=== PATIENT | female | born 1935 | race Caucasian/White ===

== ENCOUNTER 2017-04-23 14:56 | Inpatient (IN) | payer OTHER ==
[~2017-04-23] VITALS: Ht 154.9 cm; Wt 84.4 kg
--- NOTE | ~2017-04-23 | D ---
[facility] [place] [address] DISCHARGE SUMMARY Name: MATIAS TAVERASVINCENT Clayton Room #: 457-P [facility] IN M.R.#: [id number] Admission: 04/23/17 Attend Phys: Ben Hemphill MD Discharge: 04/29/17 Date of : 37 Report #: [id number] THIS REPORT FOR: //name// CC: Ben Hemphill FINAL DIAGNOSES: 1. Acute Clostridium difficile colitis. 2. Bilateral pleural effusions. 3. Acute hypoxic respiratory failure. 4. Atrial fibrillation. 5. Chronic anticoagulation. 6. 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 8. Electrolyte imbalance. HOSPITAL COURSE: The patient was admitted from an LTAC for evaluation of her lower extremity weakness. MRI of the spine was unremarkable other than some degenerative changes. There seemed to be no cord impingement syndrome. Neurology saw her and did not feel there was an acute surgical cause and felt this was just related to her weakness, was related to deconditioning and weakness from her acute critical illness. Medically, she had some issues, namely being hypoxia. Studies revealed large bilateral pleural effusions and she had 300 to 700 mL tapped and removed from each lung on separate days. This improved her symptoms significantly and she was weaned off oxygen. AFib was stable with Xarelto use and rate control. She had diarrhea with high white count and C. diff was diagnosed. She was treated with oral vancomycin. PHYSICAL EXAMINATION: GENERAL: On the day of discharge, she was awake and alert, off oxygen, satting in the mid 90s on room air. VITAL SIGNS: Stable. LUNGS: Clear. HEART: Irregular. ABDOMEN: Soft, normoactive bowel sounds. EXTREMITIES: 1+ edema. She was on electrolyte replacement as well. DISPOSITION: To be discharged to a nursing home facility. I signed off on her transfer medications, diet, activity as tolerated, C. diff precautions, physical and occupational therapy. I will follow her stay there. <ELECTRONICALLY SIGNED> By: Ben Hemphill MD 04/30/17 0907 [id number] Ben Hemphill MD /nt
--- NOTE | ~2017-04-23 | HC ---
[facility] [address] CONSULTATION Name: TAVERASEBER R Room #: 457-P [facility] IN M.R.#: [id number] Admission: 04/23/17 Attend Phys: Ben Hemphill MD Discharge: Date of : 36 Report #: [id number] THIS REPORT FOR: //name// CC: Ben Hemphill DATE OF SERVICE: 04/25/2017 HISTORY OF PRESENT ILLNESS: The patient is an 81-year-old white female who has a complex history of initially undergoing a right total knee arthroplasty approximately 2 months ago in early February. She initially did well, was able to be discharged to home. She then had the complication of a pneumonia with acute respiratory failure, ended up needing mechanical ventilation, was transferred to [facility], had tracheostomy, PEG tube placement. She had a prolonged hospitalization and was then transferred to [facility]. She was able to be weaned off the ventilator and decannulated. She was noted to have extreme lower extremity weakness with no ability to ambulate since early February. She was transferred over to [facility] and underwent neurology evaluation. MRI of the lumbosacral spine was essentially negative. She appears to have a critical illness myopathy, although she has proximal muscle weakness which is significant as well. She has had issues with atrial fibrillation and she is in isolation for C. diff. She has bilateral large pleural effusions and is followed by pulmonary medicine. We are seeing her in rehabilitation medicine consultation. PAST MEDICAL HISTORY: Includes atrial fibrillation. She has the above significant prior history. PAST SURGICAL HISTORY: Includes a prior left total knee replacement with good recovery and then the recent right total knee replacement in early February. FAMILY HISTORY: Noncontributory. SOCIAL HISTORY: She lives in [place], [place] with her . There is a house with 5 steps in. There is apparently a hide-a-bed on the ground floor and she could stay on that ground floor if necessary. A ramp would needed to be built however. The patient and her do have family here in the [place] area. ALLERGIES: PENICILLIN and SULFA. HABITS: No history of chronic alcohol or tobacco use. MEDICATIONS: Please see the full medication listing. REVIEW OF SYSTEMS: Complains of overall generalized weakness and debilitation. [facility] [address] [place] [address] CONSULTATION Name: EBER TAVERAS Room #: 457-P [facility] IN M.R.#: [id number] Admission: 04/23/17 Attend Phys: Ben Hemphill MD Discharge: Date of : 36 Report #: [id number] No focal pain complaints. She notes she fatigues fairly quickly. PHYSICAL EXAMINATION: GENERAL: An 81-year-old overweight white female in no obvious distress. VITAL SIGNS: Last recorded temperature is 97.8, pulse 74, respirations 22, blood pressure 123/83. NEUROLOGIC: The patient is alert. She is pleasant. She has nasal prong O2. She is currently on 2 liters. Facies are symmetric. She has functional range of motion of both upper extremities. Strength is grade 4-/5 to 3+/5. DTRs are trace. As far as her lower extremities, she was unable to lift both of her legs and to try to place her knee in her chest. Proximal lower extremity strength was less than antigravity to grade 3. Knee extension, knee flexion, ankle dorsiflexion, plantar flexion are all grade 3. DTRs are trace to 1. Functionally, she is sit to stand edge of bed, max assist. She is mod to max for static standing. EXTREMITIES: Bilateral knee incisions are noted with the left well healed and the right more recent knee incision healing in nicely. ASSESSMENT: An 81-year-old white female with the following problem list: 1. Critical illness myopathy. 2. Acute respiratory failure with hypoxia, prior tracheostomy with decannulation. Prolonged hospitalizations. 3. Atrial fibrillation. 4. Pleural effusion. Pulmonary medicine is closely following. 5. Clostridium difficile colitis, in isolation. PLAN: We are assessing her for a potential acute [address] [place] [address] inpatient rehabilitation stay. We will be glad to follow along with you. <ELECTRONICALLY SIGNED> By: Ben Baron MD 04/25/17 1350 1140 1221 Ben Baron MD /nt
--- NOTE | ~2017-04-23 | CNG ---
[facility] [place] [address] CYTO-NONGYN REPORT PROCEDURE Name: RADHA TAVERAS Room #: 457-P ADM IN M.R.#: [id number] Admission: 04/23/17 Date of : 37 Discharge: Report #: [id number] Path Case #: [id number] CYTOPATHOLOGY REPORT COLLECTION DATE: 04/24/2017 RECEIVED DATE: 04/24/2017 SUBMITTING PHYS: Dr. Giselle Kay OTHER PHYS: Dr. Ben Hemphill CLINICAL HISTORY: Lower extremity weakness. SPECIMEN(S) RECEIVED: A.Pleural fluid * * * * * * * * * * * * FINAL DIAGNOSIS: A. Pleural fluid: No malignant epithelial cells identified. - Highly reactive mesothelial cells and predominantly chronic inflammatory cells present. COMMENT: Properly-controlled immunohistochemical stains are performed on the cell block. Block A1 Calretinin Highlights scattered mesothelial cells. CD68 Stains numerous histiocytes. Matthew-EP4 Nonreactive. (CLW:mmrohan; 04/26/2017) PATHOLOGIST: Selene Lee M.D. REPORT ELECTRONICALLY SIGNED BY: Selene Lee M.D. DATE/TIME: 04/26/2017 15:49 * * * * * * * * * * * * GROSS PATHOLOGY: A. Pleural fluid: The specimen is submitted unfixed, labeled "Radha Taveras". Received by the Cytology Department is 10 mL of red fluid. One ThinPrep slide and a cell block were prepared. (clt 04.24.2017) FLASHER ADJUSTER(S): CHRIS [place] INITIAL CPT CODE(S): A; 34287, 65903, 67214, 47239, 59763 Professional services performed by [facility] at [facility] [address] [place] [address] [facility] [address] [place] [address] CYTO-NONGYN REPORT PROCEDURE Name: RADHA TAVERAS Room #: 457-P ADM IN .R.#: [id number] Admission: 04/23/17 Date of : 36 Discharge: Report #: [id number] Path Case #: [id number] Technical services performed by [facility] at [address] [place] [address], [address], [place] [address]. [address] [place] [address] PHONE: [phone] DIRECTOR: Coleman Duncan M.D. * * * END OF REPORT * * *
--- NOTE | ~2017-04-23 | CNG ---
[facility] [place] [address] CYTO-NONGYN REPORT PROCEDURE Name: RADHA TAVERAS Room #: 457-P DIS IN M.R.#: [id number] Admission: 04/23/17 Date of : 37 Discharge: 04/29/17 Report #: [id number] Path Case #: [id number] CYTOPATHOLOGY REPORT COLLECTION DATE: 04/26/2017 RECEIVED DATE: 04/26/2017 SUBMITTING PHYS: Dr. Ben Hemphill OTHER PHYS: CLINICAL HISTORY: LE weakness. SPECIMEN(S) RECEIVED: A.Pleural fluid * * * * * * * * * * * * FINAL DIAGNOSIS: A. Pleural fluid: - No malignant cells identified. Reactive mesothelial cells and inflammation identified. PATHOLOGIST: Gwendolyn Amanda M.D. REPORT ELECTRONICALLY SIGNED BY: Gwendolyn Amanda M.D. DATE/TIME: 04/29/2017 16:18 * * * * * * * * * * * * GROSS PATHOLOGY: A. Pleural fluid: The specimen is submitted unfixed, labeled "Radha Taveras". Received by the Cytology Department is 10 mL of orange red fluid. One ThinPrep slide and a cell block were prepared. (clt 04.26.2017) TIME SIGNAL WIRER(S): CHRIS Luque(AS[facility]) INITIAL CPT CODE(S): A; 54593, 72083 Professional services performed by [facility] at [facility] [address], [place] [address] Technical services performed by [facility] at [address] [place] [address]., [address], [place] [address]. [facility] [address] [place] [address], [address] [place] [address] [address]: [phone] [facility] [place] [address] CYTO-NONGYN REPORT PROCEDURE Name: RADHA TAVERAS Room #: 457-P [facility] IN M.R.#: [id number] Admission: 04/23/17 Date of : 36 Discharge: 04/29/17 Report #: [id number] Path Case #: [id number] DIRECTOR: Coleman Duncan M.D. * * * END OF REPORT * * *
--- NOTE | ~2017-04-23 | 2DMMODE ---
[address] [place] [address] 2 D/M-MODE ECHOCARDIOGRAM Name: EBER TAVERAS Room #: 457-P ADM IN .R.#: [id number] Admission: 04/23/17 Attend Phys: Naun Frey Discharge: Date of : 37 Date of Service: 04/24/17 1135 Report #: [id number] THIS REPORT FOR: //name// APPROVED REPORT Study performed: 04/24/2017 09:52:42 EXAM: Comprehensive 2D, Doppler, and color-flow Echocardiogram Patient Location: Bedside Room #: 434 Status: routine BSA: 1.83 HR: 111 bpm BP: 186/123 mmHg Rhythm: Atrial Fibrillation Other Information Study Quality: Adequate Indications Dyspnea Hx: Chronic Afib 2D Dimensions RVDd: 41.90 mm LVEF(%): 49.62 (>50%) IVSd: 9.64 (7-11mm) LVOT Diam: 19.52 (18-24mm) LVDd: 47.16 mm PWd: 10.59 (7-11mm) LVDs: 35.32 (25-40mm) Aortic Root: 31.77 mm Nicholas's LVEF: 49.62 % Volumes Left Atrial Volume (Systole) Single Plane 4CH: 66.39 mL Single Plane 2CH: 82.71 mL LA ESV Index: 44.00 mL/m2 Aortic Valve AoV Peak Aniceto.: 1.65 m/s AO Peak Gr.: 10.88 mmHg LVOT Max P.38 mmHg LVOT Max V: 1.16 m/s AR Vmax: 2.10 cm2 Mitral Valve MVA Planimetry: 2187.19 mm2 MV Decel. Time: 206.[address] [employer] [place] [address] 2 D/M-MODE ECHOCARDIOGRAM Name: EBER TAVERAS Room #: 457-P [facility] IN [facility].#: [id number] Admission: 04/23/17 Attend Phys: Naun Frey Discharge: Date of : 37 Date of Service: 04/24/17 1135 Report #: [id number] MV E Max Aniceto.: 0.99 m/s Pulmonary Valve PV Peak Aniceto.: 1.21 m/s PV Peak Gr.: 5.88 mmHg Tricuspid Valve TR Peak Aniceto.: 3.09 m/s RAP Estimate: 5.00 mmHg TR Peak Gr.: 38.35 mmHg PA Pressure: 43.00 mmHg Left Ventricle The left ventricle is normal size. There is normal LV segmental wall motion. There is normal left ventricular wall thickness. Left ventricular systolic function is normal. LVEF is 55-60%. This study is not technically sufficient to allow evaluation of the LV diastolic function due to atrial fibrillation. Right Ventricle Right ventricle is mildly dilated. The right ventricular systolic function is normal. Atria Left atrium is severely dilated. Right atrium is moderately dilated. Aortic Valve Aortic valve is mildly calcified. No aortic regurgitation is present. Mitral Valve Mitral valve leaflets are mildly thickened. Mild mitral annular calcification. Moderate mitral regurgitation. Tricuspid Valve The tricuspid valve is normal in structure. There is moderate tricuspid regurgitation. The right atrial pressure is estimated at 5 mmHg. There is moderate pulmonary hypertension with an estimated PAP of 43mmHg. Pulmonic Valve Pulmonic valve is not well visualized. Trace pulmonic regurgitation. Great Vessels The aortic root is normal in size. Ascending aorta is not well visualized. IVC is normal in size and collapses >50% with [address] [place] [address] 2 D/M-MODE ECHOCARDIOGRAM Name: EBER TAVERAS Forrest Room #: 457-P [facility] IN .R.#: [id number] Admission: 04/23/17 Attend Phys: Naun Frey Discharge: Date of : 37 Date of Service: 04/24/17 1135 Report #: [id number] inspiration. Pericardium There is no pericardial effusion. Left and right pleural effusions noted. <Conclusion> The left ventricle is normal size. Left ventricular systolic function is normal. LVEF is 55-60%. Right ventricle is mildly dilated. Left atrium is severely dilated. Right atrium is moderately dilated. Aortic valve is mildly calcified. No aortic regurgitation is present. Mitral valve leaflets are mildly thickened. Mild mitral annular calcification. Moderate mitral regurgitation. The tricuspid valve is normal in structure. There is moderate tricuspid regurgitation. The right atrial pressure is estimated at 5 mmHg. There is moderate pulmonary hypertension with an estimated PAP of 43mmHg. Pulmonic valve is not well visualized. Trace pulmonic regurgitation. Ascending aorta is not well visualized. Left and right pleural effusions noted. <ELECTRONICALLY SIGNED> By: Gianfranco Palencia MD 04/24/17 1135 1135 1135 Gianfranco Palencia MD /INF
--- NOTE | ~2017-04-23 | H ---
[facility] [place] [address] HISTORY AND PHYSICAL Name: TAVERASEBER R Room #: 457-P ADM IN M.R.#: [id number] Admission: 04/23/17 Attend Phys: Ben Hemphill MD Discharge: Date of : 36 Report #: [id number] THIS REPORT FOR: //name// CC: Ben Hemphill DATE OF SERVICE: 04/23/2017 CHIEF COMPLAINT: Leg weakness. HISTORY OF PRESENT ILLNESS: The patient is an 81-year-old female admitted from [facility] for evaluation of leg weakness. Her history began approximately 2 months ago when she [facility]. She discharged home only to be readmitted to the hospital a day or 2 later with shortness of breath. Subsequently, she developed acute hypoxic respiratory failure, felt to be related to pneumonia and required intubation and mechanical ventilation. She was unable to wean from the ventilator and subsequently required the placement of a trach and PEG tube. She transferred to [facility] for attempted ventilator weaning; however, she had additional complications with infections and was readmitted to [facility]. When stabilized here, she transferred to [facility]. She has been now weaned from the ventilator and her tracheostomy tube has been decannulated. She has progressed to an oral diet and is ready to proceed with rehabilitation efforts. However, during her stay, she has had extreme leg weakness and she has been unable to stand or walk. She is admitted for evaluation of leg weakness for consideration of a possible lumbar spinal issue. PAST MEDICAL HISTORY: As above, atrial fibrillation. PAST SURGICAL HISTORY: As above. FAMILY HISTORY: Noncontributory. SOCIAL HISTORY: No known chronic alcohol or tobacco use. ALLERGIES: PENICILLIN and SULFA. MEDICATIONS: Please see the transfer list. REVIEW OF SYSTEMS: She was denying headache, chest pain, shortness of breath, abdominal pain, nausea, vomiting, diarrhea, constipation, dysuria, syncope. PHYSICAL EXAMINATION: VITAL SIGNS: Per the nursing note. GENERAL: She is awake and alert, sitting up in bed in no distress. LUNGS: Clear. [address] [address] HISTORY AND PHYSICAL Name: EBER TAVERAS Forrest Room #: 457-P [facility] IN M.R.#: [id number] Admission: 04/23/17 Attend Phys: Ben Hemphill MD Discharge: Date of : 36 Report #: [id number] HEART: Regular. ABDOMEN: Soft. EXTREMITIES: Showed no edema. NEUROLOGIC: She had global weakness in the lower legs. This physical assessment was made at [facility] as I saw her on rounds this morning. ASSESSMENT: 1. Acute lower extremity weakness. 2. Atrial fibrillation. 3. Recent acute hypoxic respiratory failure, recent weaned from ventilator and tracheostomy tube decannulation. 4. Recent right total knee replacement. 5. Critical illness myopathy. PLAN: An MRI of the lumbosacral spine has been ordered. I have asked the Neurology service to see her as well. We will continue her medications and transfer. Anticipate discharge to a rehabilitation center once evaluation completed. <ELECTRONICALLY SIGNED> By: Ben Hemphill MD 04/24/17 1313 1557 1731 Ben Hemphill MD /nt
--- NOTE | ~2017-04-23 | HC ---
[facility] [place] [address] CONSULTATION Name: EBER TAVERAS Forrest Room #: 457-P ADM IN M.R.#: [id number] Admission: 04/23/17 Attend Phys: Ben Hemphill MD Discharge: Date of : 36 Report #: [id number] THIS REPORT FOR: //name// CC: Ben Hemphill DATE OF SERVICE: 04/23/2017 REASON FOR CONSULTATION: Pleural effusions. IMPRESSION: 1. Bilateral pleural effusions. 2. History of acute on chronic respiratory failure with sepsis, pneumonia, gram negative, gram positive organisms. 3. History of right upper lobe density. 4. Chronic atrial fibrillation. 5. Status post right total knee, complicated with sepsis and pneumonia. 6. Hypokalemia. 7. Hyponatremia. 8. Protein calorie malnutrition, albumin of 1.7. 9. Leukocytosis. 10. Anemia, normocytic. 11. Elevated TSH. PLAN: We will move to telemetry bed, ask ID to revisit, may do CT chest. Because of leg weakness, MRI has been ordered and neuro consult has been ordered. HISTORY OF PRESENT ILLNESS: A very pleasant 81-year-old female had a knee replacement done, had sepsis, pneumonia, had trach. She was at [facility], then went to for sepsis, then brought to [facility]. There, she improved and was able to be decannulated, however, continued to have leg weakness. PAST MEDICAL HISTORY: Per chart. PAST SURGICAL HISTORY: Include knee replacement. ALLERGIES: PENICILLIN, SULFONAMIDES. FAMILY HISTORY: Noncontributory. SOCIAL HISTORY: Negative tobacco, negative ETOH. MEDICATIONS: Included amiodarone, atorvastatin, bacitracin, Boost, famotidine, digoxin, ipratropium, rivaroxaban, triamcinolone, glucagon, dextrose, Lasix, loperamide, ipratropium bromide p.r.n., trazodone and tramadol p.r.n. [facility] [address] [place] [address] CONSULTATION Name: EBER TAVERAS Forrest Room #: 457-P [facility] IN [facility]#: [id number] Admission: 04/23/17 Attend Phys: Ben Hemphill MD Discharge: Date of : 36 Report #: [id number] PHYSICAL EXAMINATION: VITAL SIGNS: Pending in the computer. The patient is alert and oriented on nasal cannula. LUNGS: Clear but decreased breath sounds. HEART: Irregular. ABDOMEN: Bowel sounds present. EXTREMITIES: Showed positive edema. LABORATORY DATA: Discussed also with , sodium 132, potassium 3.1, creatinine 0.4, calcium 8, albumin 1.7. Digoxin 0.5. White count 23.4, hemoglobin 9.3, platelets 294, TSH 4.388. Knee x-ray showed no acute. Chest x-ray showed cardiomegaly, bilateral effusions. <ELECTRONICALLY SIGNED> By: Giselle Kay MD 04/26/17 0849 [id number] Giselle Kay MD /no
--- NOTE | ~2017-04-23 | HC ---
[facility] [place] [address] CONSULTATION Name: TAVERASEBER MCKENNA Forrest Room #: 457-P ADM IN M.R.#: [id number] Admission: 04/23/17 Attend Phys: Ben Hemphill MD Discharge: Date of : 37 Report #: [id number] THIS REPORT FOR: //name// CC: Ben Hemphill REASON FOR CONSULTATION: I was asked to evaluate concerning leukocytosis. HISTORY OF PRESENT ILLNESS: The patient is an 81-year-old who was transferred from [facility] because of lower extremity weakness. She is an 81-year-old that underwent a right total knee arthroplasty on 02/20/2017. She had further complications including respiratory failure and failure to wean from the ventilator. She had a PEG tube placed and a tracheostomy. She was later transferred from [facility] to [facility] for further ventilatory weaning. She had a methicillin-susceptible Staph aureus pneumonia along with atrial fibrillation and urinary retention. She ultimately weaned from the ventilator and has been improving except inability to walk or gain strength in her lower extremities. There was some concern about a spinal cord issue. She was transferred to [facility] for further evaluation. Since transfer, she continues to have cough with yellow sputum production. She has had diarrhea. She has an indwelling Gasca catheter. No fever, chills or sweats. She has had intermittent nausea with dry heaves. No decubiti or rash. She underwent a right thoracentesis today, results are currently pending. ALLERGIES: INCLUDED SULFA AND PENICILLIN, REACTIONS NOT KNOWN. She does tolerate cephalosporins. She is currently off antibiotics and is on no corticosteroids. PAST MEDICAL HISTORY: Atrial fibrillation, diabetes, degenerative arthritis, right total knee arthroplasty, above noted issues postop. FAMILY HISTORY: Noncontributory. SOCIAL HISTORY: , nonsmoker, no significant alcohol intake. PHYSICAL EXAMINATION: VITAL SIGNS: Afebrile, hemodynamically stable. GENERAL: She was alert and cooperative and pleasant, in no acute distress. IV access unremarkable. HEENT: Unremarkable. The patient was alert, cooperative and conversant. Upper extremity strength was normal. She is very weak in her lower extremities, unable to get out of bed. She was able to sit up in bed with minimal assist. ____ HEENT: Unremarkable. NECK: Supple. Tracheostomy stoma has healed in nicely. No adenopathy. LUNGS: Coarse breath sounds, right greater than left posteriorly. HEART: Regular, without murmur. ABDOMEN: Soft, nontender, no hepatosplenomegaly or mass. She does have an indwelling Gasca catheter. [address] [address] CONSULTATION Name: EBER TAVERAS Room #: 457-P [facility] IN M.R.#: [id number] Admission: 04/23/17 Attend Phys: Ben Hemphill MD Discharge: Date of : 37 Report #: [id number] EXTREMITIES: Right total knee arthroplasty incision was well approximated. She has no decubiti noted. LABORATORY STUDIES: Chest x-ray showed right lower lobe and left perihilar infiltrate. MRI scan of the lumbosacral spine showed degenerative arthritis with no acute impingement. Ultrasound of lower extremities was negative for DVT. Hemoglobin 9.2, platelet count 294,000, white count 20,000 with 95% neutrophils. Urinalysis: WBCs, bacteria. Sodium 132, potassium 3.1, bicarbonate 32, creatinine 0.4. Liver function test normal. Sedimentation rate was 39. C. difficile by PCR is pending. Urine culture is pending. IMPRESSION: An 81-year-old with leukocytosis cause of which indeterminate with considering bilateral pulmonary infiltrates, urinary tract infection, C. difficile colitis. PLAN: We will obtain cultures and await C. difficile by PCR. We will adjust antibiotics accordingly. Continue neurologic evaluation regarding her weakness. <ELECTRONICALLY SIGNED> By: Lloyd Gerber MD 04/25/17 [id number] Lloyd Gerber MD /nt
[2017-04-23] MEDS ORDERED: LANOXIN 0.120.125 M1 PO (15:52)
[2017-04-23] MEDS ORDERED: PACERONE 200 M200 M1 PO (15:52)
[2017-04-23] MEDS ORDERED: ATROVENT HFA14 GM INH (15:53)
[2017-04-23] MEDS ORDERED: PEPCID20 MG PO (15:53)
[2017-04-23] MEDS ORDERED: UNICOMPLEX M TA1 TA1 PO (15:54)
[2017-04-23] MEDS ORDERED: XARELTO20 MG PO (15:54)
[2017-04-23] MEDS ORDERED: TRIAMCINOLONE A80 G2 TOP (15:55)
[2017-04-23] MEDS ORDERED: TYLENOL325 MG PO (15:56)
[2017-04-23] MEDS ORDERED: LASIX 40 MG TAB40 M2 PO (15:57)
[2017-04-23] MEDS ORDERED: GLUCAGEN1 MG IM (15:59)
[2017-04-23] MEDS ORDERED: GLUCOSE GEL38 GM PO (16:00)
[2017-04-23] MEDS ORDERED: LOPERAMIDE2 MG PO (16:01)
[2017-04-23] MEDS ORDERED: SENOKOT-S1 TA1 PO (16:02)
[2017-04-23] MEDS ORDERED: MIRALAX17 GM PO (16:02)
[2017-04-23] MEDS ORDERED: TRAMADOL 50 MG50 MG PO ×2 (16:02→16:03)
[2017-04-23] MEDS ORDERED: TRAZODONE HCL50 MG PO (16:04)
[2017-04-23 18:30] LABS: HEMOGLOBIN 9.3 gm/dL (12.0-15.0); MCH 29.7 pg (26.0-34.0); MCHC 33.4 g/dL (28.0-37.0); MCV 88.8 fL (80.0-100.0); RBC 3.15 mil/uL (4.20-5.00); RDW 17.4 % (10.5-14.5); WBC 23.4 thou/uL (4.0-11.0)
[2017-04-23 18:52] LABS: ALBUMIN 1.7 g/dL (3.4-5.0); CREATININE 0.4 mg/dL (0.6-1.0); POTASSIUM 3.1 mmol/L (3.5-5.1); TOTAL BILIRUBIN 0.6 mg/dL (<0.1-1.0); TOTAL PROTEIN 5.6 g/dL (6.4-8.2)
[2017-04-23 19:15] VITALS: BP 114/56
[2017-04-23 23:42] VITALS: BP 103/64
[2017-04-23 23:43] LABS: WBC 20.1 thou/uL (4.0-11.0)
[2017-04-23 23:51] LABS: URINE BILIRUBIN NEGATIVE (Negative); URINE BLOOD 1+ (Negative); URINE COLOR YELLOW; URINE GLUCOSE-RANDOM* NEGATIVE (Negative); URINE KETONES NEGATIVE (Negative); URINE LEUKOCYTES-REFLEX 3+ (Negative); URINE PROTEIN (DIPSTICK) NEGATIVE (Negative)
[2017-04-24 00:01] LABS: CRYSTALS None Seen /LPF (None Seen); FINE GRANULAR CASTS 0-3 Few /LPF (None Seen); HYALINE CASTS 0-3 Few /LPF (None Seen); SQUAMOUS 0-3 Few /LPF (0-3); TRANSITIONAL EPITHEL CELL 0-3 Few /LPF (None Seen); URINE RBC 3-10 Few /HPF (0-2); URINE WBC-REFLEX >25 Many /HPF (0-5); WBC CLUMPS Moderate (None Seen)
[2017-04-24 00:21] LABS: TOTAL CELL COUNT 100
[2017-04-24 00:22] LABS: ANISOCYTOSIS 1+
[2017-04-24 03:24] VITALS: BP 103/65
[2017-04-24 07:17] VITALS: BP 119/72
[2017-04-24 07:43] LABS: INR 1.4; PROTIME 13.8 Seconds (9.3-11.4)
[2017-04-24 09:57] LABS: MANUAL DIFF YES
[2017-04-24 09:58] LABS: TOTAL VOLUME 60 mL
[2017-04-24 10:01] LABS: CLARITY CLOUDY; COLOR RED
[2017-04-24 10:15] LABS: BF NUCLEATED CELLS 339; BF RBC 36604
[2017-04-24 11:17] LABS: BF NEUTROPHILS 65
[2017-04-24 12:15] VITALS: BP 98/61
[2017-04-24 14:11] LABS: BODY FLUID AMYLASE 9 U/L (()); BODY FLUID GLUCOSE 92 mg/dL (()); BODY FLUID LDH 106 IU/L (()); BODY FLUID PROTEIN 2.5 g/dL (())
[2017-04-24 16:21] VITALS: BP 106/67
[2017-04-24 19:23] VITALS: BP 110/71
[2017-04-25 05:34] VITALS: BP 110/69
[2017-04-25 07:12] VITALS: BP 123/83
[2017-04-25 08:29] LABS: POTASSIUM 3.5 mmol/L (3.5-5.1)
[2017-04-25 09:02] LABS: CALCIUM 8.1 mg/dL (8.5-10.1); CREATININE 0.3 mg/dL (0.6-1.0)
[2017-04-25 09:19] LABS: HEMOGLOBIN 8.9 gm/dL (12.0-15.0); MCH 28.8 pg (26.0-34.0); MCHC 31.7 g/dL (28.0-37.0); MCV 90.9 fL (80.0-100.0); RBC 3.08 mil/uL (4.20-5.00); RDW 17.5 % (10.5-14.5); WBC 16.5 thou/uL (4.0-11.0)
[2017-04-25 11:55] VITALS: BP 104/68
[2017-04-25 16:50] VITALS: BP 101/66
[2017-04-25 19:28] VITALS: BP 97/59
[2017-04-26 04:27] VITALS: BP 95/56
[2017-04-26 04:38] LABS: HEMOGLOBIN 9.1 gm/dL (12.0-15.0); MCH 29.8 pg (26.0-34.0); MCHC 33.5 g/dL (28.0-37.0); MCV 88.9 fL (80.0-100.0); RBC 3.04 mil/uL (4.20-5.00); RDW 16.9 % (10.5-14.5); WBC 17.2 thou/uL (4.0-11.0)
[2017-04-26 04:45] LABS: CALCIUM 7.9 mg/dL (8.5-10.1); CREATININE 0.3 mg/dL (0.6-1.0); POTASSIUM 3.1 mmol/L (3.5-5.1)
[2017-04-26 08:11] VITALS: BP 115/76
[2017-04-26 11:42] VITALS: BP 107/58
[2017-04-26 12:08] LABS: BF NUCLEATED CELLS 492; BF RBC 11882
[2017-04-26 13:05] LABS: BF NEUTROPHILS 62; CLARITY CLOUDY; COLOR RED; MANUAL DIFF YES; TOTAL VOLUME 60 mL
[2017-04-26 16:35] VITALS: BP 101/61
[2017-04-26 19:33] VITALS: BP 110/73
[2017-04-27 05:13] VITALS: BP 105/70
[2017-04-27 06:35] LABS: HEMATOCRIT 26.7 % (37.0-47.0); HEMOGLOBIN 8.9 gm/dL (12.0-15.0); MANUAL DIFF YES; MCH 29.4 pg (26.0-34.0); MCHC 33.2 g/dL (28.0-37.0); MCV 88.4 fL (80.0-100.0); PLATELET COUNT 318 thou/uL (150-400); RBC 3.02 mil/uL (4.20-5.00); RDW 16.9 % (10.5-14.5); WBC 14.2 thou/uL (4.0-11.0)
[2017-04-27 07:09] VITALS: BP 112/70
[2017-04-27 07:55] LABS: MAGNESIUM 1.4 mg/dL (1.8-2.4); POTASSIUM 3.2 mmol/L (3.5-5.1)
[2017-04-27 08:08] LABS: BODY FLUID ALBUMIN 1.2 g/dL (()); BODY FLUID AMYLASE 10 U/L (()); BODY FLUID GLUCOSE 118 mg/dL (()); BODY FLUID LDH 106 IU/L (()); BODY FLUID PROTEIN 3.3 g/dL (())
[2017-04-27 08:11] LABS: ABSOLUTE NEUTROPHILS 13.1 thou/uL (1.4-8.2); ANISOCYTOSIS SLIGHT; LARGE PLATELETS OCCASIONAL; MYELOCYTES 1 %; POIKILOCYTOSIS SLIGHT; TOTAL CELL COUNT 100; TOXIC GRANULATION SLIGHT
[2017-04-27 11:33] VITALS: BP 116/69
[2017-04-27 15:34] VITALS: BP 95/65
[2017-04-27 19:54] VITALS: BP 118/71
[2017-04-28 04:18] VITALS: BP 96/63
[2017-04-28 05:18] LABS: HEMATOCRIT 25.9 % (37.0-47.0); HEMOGLOBIN 8.8 gm/dL (12.0-15.0); MCH 29.8 pg (26.0-34.0); MCV 87.7 fL (80.0-100.0); RBC 2.95 mil/uL (4.20-5.00); WBC 14.7 thou/uL (4.0-11.0)
[2017-04-28 05:29] LABS: CALCIUM 7.5 mg/dL (8.5-10.1); CREATININE 0.3 mg/dL (0.6-1.0); MAGNESIUM 1.3 mg/dL (1.8-2.4); POTASSIUM 3.1 mmol/L (3.5-5.1)
[2017-04-28 07:36] VITALS: BP 107/74
[2017-04-28 11:28] VITALS: BP 109/72
[2017-04-28 16:37] VITALS: BP 126/84
[2017-04-28 19:55] VITALS: BP 99/66
[2017-04-29 03:44] VITALS: BP 98/61
[2017-04-29 06:05] LABS: HEMATOCRIT 26.4 % (37.0-47.0); HEMOGLOBIN 8.7 gm/dL (12.0-15.0); MCHC 32.8 g/dL (28.0-37.0); MCV 88.5 fL (80.0-100.0); RBC 2.99 mil/uL (4.20-5.00); RDW 16.4 % (10.5-14.5); WBC 11.6 thou/uL (4.0-11.0)
[2017-04-29 06:16] LABS: CALCIUM 7.8 mg/dL (8.5-10.1); CREATININE 0.3 mg/dL (0.6-1.0); MAGNESIUM 1.5 mg/dL (1.8-2.4); POTASSIUM 3.3 mmol/L (3.5-5.1)
[2017-04-29 07:21] VITALS: BP 92/59
[2017-04-29 11:22] LABS: FOLIC ACID 17.4 ng/mL (8.6-58.9)
[2017-04-29] MEDS ORDERED: VANCOMYCIN100 MG/M1 PO (12:51)
[2017-04-29] MEDS ORDERED: TRAMADOL 50 MG50 MG PO (12:51)
[2017-04-29] MEDS ORDERED: FLOMAX0.4 MG PO (12:51)
[2017-04-29] MEDS ORDERED: ACETAMINOPHEN325 M1 PO (12:52)
[2017-04-29] MEDS ORDERED: ACIDOPHILUS1 EAC4 PO (12:52)
[2017-04-29] MEDS ORDERED: MAGNESIUM OXID400 MG PO (12:52)
[2017-04-29] MEDS ORDERED: K-DUR 20 MEQ T20 MEQ PO (12:52)
[2017-04-29 13:26] VITALS: BP 103/63
[2017-05-01 15:07] LABS: ALPHA TOCOPHEROL 12.1 mg/L (6.5-21.5)
== END 2017-04-29 14:30 | DRG 371 ==
LOC: 4W 14:56 → 4N 14:56 → 4W 20:19
PROVIDERS: Internal Medicine Geriatric Medicine; Internal Medicine Pulmonary Disease; Psychiatry & Neurology Neurology; Specialist
PROC: 0W993ZZ Drainage of Right Pleural Cavity, Percutaneous Approach (ICD-10-PCS; principal; 2017-04-24)
PROC: 0W9B3ZZ Drainage of Left Pleural Cavity, Percutaneous Approach (ICD-10-PCS; 2017-04-26)
DX: A04.7 Enterocolitis due to Clostridium difficile (principal); J96.01 Acute respiratory failure with hypoxia; E43 Unspecified severe protein-calorie malnutrition; J90 Pleural effusion, not elsewhere classified; E87.1 Hypo-osmolality and hyponatremia; G72.81 Critical illness myopathy; J98.11 Atelectasis; I48.2 Chronic atrial fibrillation; E87.6 Hypokalemia; D64.9 Anemia, unspecified; D72.829 Elevated white blood cell count, unspecified; I48.91 Unspecified atrial fibrillation; Z96.653 Presence of artificial knee joint, bilateral; E87.8 Other disorders of electrolyte and fluid balance, not elsewhere classified; M48.00 Spinal stenosis, site unspecified; N30.90 Cystitis, unspecified without hematuria; K21.9 Gastro-esophageal reflux disease without esophagitis; Z88.0 Allergy status to penicillin; Z88.2 Allergy status to sulfonamides; Z93.0 Tracheostomy status; Z79.01 Long term (current) use of anticoagulants; Z93.1 Gastrostomy status
CPT/HCPCS: 10047